=== PATIENT | male | born 1965 | race American Indian/Alaskan Native ===

== ENCOUNTER 2021-10-28 08:48 | Outpatient (CLI) | payer OTHER ==
--- NOTE | 2021-10-28 10:33 | XRay Report ---
RIGHT ANKLE 3 VIEWS INDICATION: Right ankle pain. COMPARISON: None. IMPRESSION: No osseous abnormality or joint pathology. Normal soft tissues. RIGHT KNEE 2 VIEWS INDICATION: RIGHT KNEE PAIN. COMPARISON: None. IMPRESSION: No acute osseous or soft tissue abnormality. 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 No significant osteoarthritic changes. Trace joint effusion is suspected on the lateral image. RIGHT SHOULDER 3 VIEWS INDICATION: Right shoulder pain. COMPARISON: None. IMPRESSION: No osseous abnormality or joint pathology. Normal soft tissues. Signer Name: Ko Mcconnell Jr, MD Signed: 10/28/2021 10:28 AM Workstation Name: [id number]
== END 2021-10-28 08:49 | disposition home or self-care (01) ==
LOC: XRAY 08:48
PROVIDERS: ATTEND Internal Medicine
DX: M25.561 Pain in right knee (principal); M25.511 Pain in right shoulder; M25.571 Pain in right ankle and joints of right foot